=== PATIENT | female | born 1970 | race Caucasian/White ===

== ENCOUNTER 2020-09-02 09:11 | Outpatient (CLI) | payer BC, SELFPAY ==
--- NOTE | ~2020-09-02 | XR_ITS ---
EXAMINATION: XR foot RT min 3V DATE: 09/02/2020 09:36 INDICATION: Right foot and heel pain. TECHNIQUE: 3 views of right foot were obtained. COMPARISON: None. FINDINGS: Bone alignment is normal. No fracture. There is mild osteoarthritis of first metatarsophala ngeal joint. There is an enthesophyte at plantar aspect of calcaneal tuberosity. IMPRESSION: 1. Mild osteoarthritis of first metatarsophalangeal joint. Reviewed, dictated and finalized at location A. [employer]
== END 2020-09-02 09:12 | disposition home or self-care (01) ==
LOC: ANHIMG 09:18
PROVIDERS: PCP Physician Assistant Medical; Visit Provider Podiatrist Foot & Ankle Surgery
DX: M19.071 Primary osteoarthritis, right ankle and foot (principal)
CPT/HCPCS: 73630

== ENCOUNTER 2021-08-31 11:59 | Outpatient (CLI) | payer BC, SELFPAY ==
--- NOTE | ~2021-08-31 | XR_ITS ---
EXAMINATION: XR knee LT 2V DATE: 08/31/2021 12:34 INDICATION: Left knee injury and pain. TECHNIQUE: 2 views of left knee were obtained. COMPARISON: Left tibia and fibula radiograph 12/12/2004 FINDINGS: Bone alignment is normal. No fracture. Joint spaces are well maintained. There is no knee j oint effusion. IMPRESSION: 1. Normal left knee. Reviewed, dictated and finalized at location A. E RECEIVER IMPRESSION: 1. Normal left knee.
--- NOTE | ~2021-08-31 | XR_ITS ---
EXAMINATION: XR hip LT min 3V w AP pelvis EXAM DATE: 08/31/2021 12:35 INDICATION: No known recent injury provided at this time. Pain of the left hip. TECHNIQUE: Left hip frontal, crosstable lateral and 'frog-leg' projections for interpretation. Fronta l projection pelvis. There is no prior study for comparison. FINDINGS: Smooth left hip femoral head contour, no radiographic evidence of avascular necrosis. Ther e are no acute fractures or dislocations identified. There is no subcutaneous gas. The soft tissue is unremarkable. There are no radiopaque foreign bodies. Hip joints are symmetric with only minima l evidence of osteoarthritis. IMPRESSION: Minimal bilateral hip osteoarthritis. Reviewed, dictated and finalized at location A. [employer]
== END 2021-08-31 12:00 | disposition home or self-care (01) ==
LOC: ANHIMG 12:05
PROVIDERS: PCP Family Medicine; Visit Provider Nurse Practitioner Family
DX: M25.562 Pain in left knee (principal); M16.0 Bilateral primary osteoarthritis of hip
CPT/HCPCS: 73502; 73560

== ENCOUNTER 2021-11-04 10:30 | Outpatient (CLI) | payer BC, SELFPAY ==
--- NOTE | ~2021-11-04 | MR_ITS ---
EXAMINATION: MR knee LT wo con DATE: 11/04/2021 11:04 INDICATION: Left knee pain post fall 2 months prior TECHNIQUE: Magnetic resonance imaging (MRI) of the left knee was performed without intravenous contra st. Sequences included coronal PD-weighted FSE, coronal PD-weighted FS FSE, sagittal T2-weighted FSE , sagittal PD-weighted FS FSE and axial PD weighted fat saturated FSE. COMPARISON: None. FINDINGS: Medial compartment: Medial meniscus is normal. Articular cartilage is normal. Lateral compartment: Lateral meniscus is normal. Articular cartilage is normal. Patellofemoral compartment: Articular cartilage is normal. Ligaments and tendons: Anterior cruciate ligament is normal. There is prominent thickening and increased signal consistent w ith at least partial if not complete tear of the posterior cruciate ligament occurring near its tibia l insertion. There is mild thickening and mild increased signal at the proximal medial collateral lig ament without significant surrounding edema consistent with scarring related to chronic sprain/partia l tear. The fibular collateral ligament complex is normal. The extensor mechanism is normal. The visu alized medial and lateral hamstring tendons as well as the iliotibial band are normal. Fluid: Small left knee joint effusion. No loose osteochondral bodies identified. Tiny Dominguez's cyst. Osseous/other: Normal marrow signal. No fracture or abnormal marrow replacing process. IMPRESSION: 1. At least partial if not complete tear of the distal posterior cruciate ligament. Correlate with ph ysical exam to assess for degree of residual functional integrity. 2. Mild scarring along the proximal medial collateral ligament consistent with sequela of prior sprai n/partial tear. 3. Small left knee joint effusion. Reviewed, dictated and finalized at location A. IMPRESSION: 1. At least partial if not complete tear of the distal posterior cruciate ligam ent. Correlate with physical exam to assess for degree of residual functional i ntegrity. 2. Mild scarring along the proximal medial collateral ligament consistent with sequela of prior sprain/partial tear. 3. Small left knee joint effusion.
== END 2021-11-04 10:31 ==
LOC: MICIMG 10:31
PROVIDERS: PCP Family Medicine; Visit Provider Physician Assistant Medical
DX: M25.462 Effusion, left knee (principal)
CPT/HCPCS: 73721

== ENCOUNTER 2022-08-15 08:28 | Emergency (ER) | payer BC, SELFPAY ==
--- NOTE | ~2022-08-15 | XR_ITS ---
EXAMINATION: XR chest 2V 08/15/2022 09:32 INDICATION: Cough PROCEDURE: 2 view chest COMPARISON: Comparison to multiple prior studies sequentially, with oldest reviewed study dated 02/18. FINDINGS: The lungs are clear. The cardiomediastinal silhouette is within normal limits. There are no pleural effusions. There is no pneumothorax suspected. IMPRESSION: 1: NO ACUTE CARDIOPULMONARY DISEASE. Reviewed, dictated and finalized at location A. [employer]
[2022-08-15 08:40] VITALS: BP 130/80; PULSE 99; RESP 16; TEMP 37.2; O2SAT 99
--- NOTE | 2022-08-15 09:16 | ED.URI ---
HPI - URI/Sore Throat General Chief Complaint: Upper Respiratory Infection Stated Complaint: FEVER/COUGH/CONGESITON/EARS/EXPOSURE TO BLACK MOLD Time Seen by Provider: 08/15/22 09:11 Source: patient Mode of arrival: ambulatory Limitations: no limitations History of Present Illness HPI Narrative: Patient presents today complaining of productive cough x2 weeks. Patient states the cough started after she was helping her family move furniture that she subsequently found to have black mold on it. Yesterday she started with a fever up to 103 that lasted for approximately 8 hours. During that time she had some nausea and vomiting as well. Associated symptoms include sore throat and ear pain. She has been taking Tylenol, Mucinex, and Coricidin HBP with some relief. Denies history of asthma or COPD. She is a nonsmoker. Related Data Allergies Allergy/AdvReac Type Severity Reaction Status Date / Time codeine Allergy Intermediate HALLUCINATI Verified 08/15/22 08:35 ONS clemastine Allergy Unknown Unknown Verified 08/15/22 08:35 latex Allergy Unknown Unknown Verified 08/15/22 08:35 phenylpropanolamine Allergy Unknown Unknown Verified 08/15/22 08:35 Sulfa (Sulfonamide Allergy Unknown Unknown Verified 08/15/22 08:35 Antibiotics) sulfanilamide Allergy Unknown Unknown Verified 08/15/22 08:35 venlafaxine Allergy Unknown Unknown Verified 08/15/22 08:35 escitalopram [From Lexapro] AdvReac irritability Verified 08/15/22 08:35 and nervousness VENLAFAXINE HCL Allergy Unknown Uncoded 08/15/22 08:35 Review of Systems Review of Systems: CONSTITUTIONAL: Denies body aches, fever, chills, or sweats. EYES: Denies visual changes, redness, or discharge. ENT: Denies rhinorrhea, congestion. + sore throat, ear pain CARDIOVASCULAR: Denies chest pain, palpitations, or edema. RESPIRATORY: Denies dyspnea.+ cough GASTROINTESTINAL: Denies abdominal pain, or diarrhea.+ nausea vomiting GENITOURINARY: Denies dysuria or hematuria. SKIN: Denies rash, itching, or wounds. MUSCULOSKELETAL: Denies back pain, joint pain, or myalgia. NEUROLOGIC: Denies headache, numbness, tingling, or weakness. PSYCH: Denies depression or anxiety. [facility] Past Medical History Medical History BMI 35.0-35.9,adult BMI 36.0-36.9,adult BMI 37.0-37.9, adult Partial tear of medial collateral ligament of knee Tear of posterior cruciate ligament of knee Surgical History Surgical History H/O: hysterectomy Family History Family History Father Cancer Alcohol abuse Mother Cerebrovascular accident COPD (chronic obstructive pulmonary disease) Tobacco abuse Sibling Hx of blood clots Other Carcinoma of colon Family history of coronary artery disease Family history of heart disease in male family member before age 55 Family history of malignant neoplasm of male breast Family history of malignant neoplasm of ovary Family history of pancreatic cancer Family history of primary malignant neoplasm of liver Hypertension Social History Social History Smoking status: Never smoker Second hand tobacco smoke exposure: Yes Alcohol intake: current Substance use: never Substance use type: does not use Living arrangements: with family Occupation/Education: occupation 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 Gender identity (if verbalized by the patient): Female Comments At time of signature, I have reviewed and agree with nursing past medical, surgical, social and family history unless otherwise noted. Please see nursing chart for further information. There is no relevant family history pertinent to the presenting complaint Exam Narrative: GENERAL: Well-appearing, wel
== END 2022-08-15 10:15 | disposition home or self-care (01) ==
PROVIDERS: Emergency Provider Nurse Practitioner; PCP Family Medicine
DX: J22 Unspecified acute lower respiratory infection (principal); J40 Bronchitis, not specified as acute or chronic
CPT/HCPCS: 71046; 99213; G0463